=== PATIENT | male | born 1990 | race Caucasian/White ===

== ENCOUNTER 2016-12-29 11:17 | Inpatient (IN) | payer OTHER ==
[2016-12-29 12:19] LABS: % IMMATURE GRANULYOCYTES 0.3 % (0.0-1.1); ABSOLUTE IMMATURE GRANULOCYTES 0.03 10^3/uL (0.00-0.10); ADD DIFF? NO; ADD MORPH? NO; ADD SCAN? NO; ATYPICAL LYMPHOCYTE FLAG 10 (0-99); FRAGMENT RBC FLAG 0 (0-99); HEMATOCRIT 43.4 % (40.0-51.0); HEMOGLOBIN 14.9 g/dL (13.7-17.5); LEFT SHIFT FLG 0 (0-99); LIPEMIA HEMOLYSIS FLAG 90 (0-99); MEAN CELL HEMOGLOBIN 33.7 pg (27.9-34.1); MEAN CELL HEMOGLOBIN CONCENTR. 34.3 g/dL (32.4-36.7); MEAN CELL VOLUME 98.2 fL (81.5-99.8); PLATELET CLUMPS FLAG 0 (0-99); PLATELET COUNT 151 10^3/uL (150-400); RED BLOOD CELL COUNT 4.42 10^6/uL (4.40-6.38); RED CELL DISTRIBUTION WIDTH 12.9 % (11.5-15.2)
--- NOTE | 2016-12-29 12:25 | CPEKG ---
Heart Rate: 97 RR Interval: 619 P-R Interval: 140 QRSD Interval: 112 QT Interval: 376 QTC Interval: 478 P Fenwick: 14 QRS Fenwick: -30 T Wave Fenwick: 67 EKG Severity - ABNORMAL ECG - EKG Impression: SINUS RHYTHM EKG Impression: PROBABLE LEFT ATRIAL ABNORMALITY EKG Impression: INCOMPLETE RIGHT BUNDLE BRANCH BLOCK EKG Impression: LEFT VENTRICULAR HYPERTROPHY Electronically Signed By: Bolivar Negron 29-Dec-2016 13:09:16
[2016-12-29 12:27] LABS: ANION GAP 10 mEq/L (8-16); CALCIUM 8.8 mg/dL (8.5-10.4); CARBON DIOXIDE 25 mEq/l (22-31); CHLORIDE 104 mEq/L (97-110); CREATININE 0.9 mg/dL (0.7-1.3); GLOMERULAR FILTRATION RATE > 60; GLUCOSE 98 mg/dL (70-100); SODIUM 139 mEq/L (134-144)
--- NOTE | 2016-12-29 13:07 | EDPHY ---
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 He developed shortness of breath and abdominal pain last week on and ultimately had cholecystectomy on Thursday in [place]. He presents today with decrease in the right upper quadrant abdominal pain he had on Thursday but worsening shortness of breath. He feels he is unable to get a full breath and has tightness in his chest. Symptoms moderate to severe and worse with exertion. Continued since last , worse over the past 48 hours. REVIEW OF SYSTEMS: Eye: no change in vision ENT: no sore throat Cardiac: no chest pain or syncope Pulmonary: No cough Abdomen: Some abdominal distention and constipation but a single episode of vomiting today Musculoskeletal: no back pain Skin: no rash Neuro: no headache Constitutional: no fever : no urinary symptoms A comprehensive 10 point review of systems is otherwise negative aside from elements mentioned in the history of present illness. PAST MEDICAL HISTORY: Cholecystectomy as noted. Hernia surgery. Coarctation of the aorta repair as a small child. Social history: Tobacco smoker General Appearance: Alert and conversant, cooperative. Eyes: No scleral icterus. ENT, Mouth: Normal mucous membranes. Respiratory: Normal respiratory effort, crackles and decreased breath sounds right lower right lung greater than left. Cardiovascular: Regular rate and rhythm. 4/6 systolic murmur. Gastrointestinal: Abdomen is soft and some mild right upper quadrant tenderness but no rebound or guarding. Neurological: Alert and oriented x3. Normally conversant. Face symmetric, normal movement and sensation in all extremities. Skin: Skin incisions on the anterior abdominal wall cholecystectomy are clean dry and intact without evidence of erythema or surrounding warmth. Musculoskeletal: No peripheral edema and no joint swelling. No calf tenderness. Psychiatric: Not agitated. Emergency Department course/MDM: Chest x-ray personally interpreted shows bilateral lower lung infiltrates right greater than left. Pulmonary edema likely. Echocardiogram, cardiology consultation. 1345: Results discussed with the patient, echo reviewed by Dr. Barlow. Much worse tricuspid regurgitation and chest x-ray shows pulmonary edema. At this point I think the elevated D-dimer is more likely due to recent surgery, and less likely due to a pulmonary embolism. 20 mg IV Lasix, admission to hospitalist service. Seen by Dr. Barlow in the emergency department and discussed with the parents by myself. 1357: Aaron Paris. Smoking Status: Current every day smoker Constitutional: Initial Vital Signs Temperature (C) 36.6 C 12/29/16 11:19 Heart Rate 100 12/29/16 11:19 Respiratory Rate 18 12/29/16 11:19 Blood Pressure 123/72 H 12/29/16 11:19 O2 Sat (%) 90 L 12/29/16 11:19 O2 Delivery Mode Nasal Cannula O2 (L/minute) 2 Allergies/Adverse Reactions: No Known Allergies Allergy (Verified 12/29/16 13:50) Home Medications: Medication Instructions Recorded Acetaminophen/ASA/Caffeine 1 each PO Q4H PRN 12/29/16 [Excedrin Tablet (*)] Cephalexin [Keflex (*)] 500 mg PO QID 12/29/16 Hydrocodone/Acetaminophen [Enochs 1 - 2 tab PO Q4H PRN 12/29/16 5/325 (*)] Medical Decision Making - Diagnostics EKG Interpretation: 12-lead EKG interpreted by me; official reading is in trace master. My interpretation is sinus rhythm with left atrial abnormality and incomplete right bundle branch block. LVH. Imaging Results: Imaging Impressions Chest X-Ray 12/29/16 12:43 Impression: 1. Fluid overload versus mild CHF. 2. Bibasilar atelectasis versus bronchopneumonia. Differential Diagnosis: Differential diagnosis considered for shortness of breath including but not limited to pulmonary infectious process, COPD, asthma, pulmonary embolus and congestive heart failure. Consult/Admit Bed Type: [place] [id number] Critical Care Time: Critical care time spent by me, Dr. Negron, exclusively with the care of this patient was 30 minutes, exclusive of PA or GAS PIPE LAYER time and exclusive of separate procedures. The organ system at risk was cardiopulmonary and I ordered echocardiogram could chest x-ray, multiple diagnostic studies, consultation with hospitalist and shake out worker, IV Lasix and supplemental oxygen; to stabilize the patient and prevent worsening of the patient's condition. - Data Points Laboratory Results: Laboratory Results 12/29/16 12:00 12/29/16 12:00 12/29/16 12/29/16 12/29/16 12:00 12:00 12:00 WBC RBC Hgb Hct MCV MCH MCHC RDW Plt Count MPV Neut % (Auto) Lymph % (Auto) [place] % (Auto) Eos % (Auto) Baso % (Auto) Nucleat RBC Rel Count Absolute Neuts (auto) Absolute Lymphs (auto) Absolute Monos (auto) Absolute Eos (auto) Absolute Basos (auto) Absolute Nucleated RBC Immature Gran % Immature Gran # D-Dimer 2.22 ug/mLFEU H ug/mLFEU (0.00-0.50) Sodium Potassium Chloride Carbon Dioxide Anion Gap BUN Creatinine Estimated GFR Glucose Calcium Total Bilirubin 0.8 mg/dL mg/dL (0.1-1.4) Conjugated Bilirubin 0.4 mg/dL mg/dL (0.0-0.5) Unconjugated Bilirubin 0.4 mg/dL mg/dL (0.0-1.1) AST 27 IU/L IU/L (17-59) ALT 90 IU/L H IU/L (21-72) Alkaline Phosphatase 59 IU/L IU/L (38-126) NT-Pro-B Natriuret Pep 1150 pg/mL H pg/mL (0-125) Total Protein 5.8 g/dL L g/dL (6.3-8.2) Albumin 3.5 g/dL g/dL (3.5-5.0) Lipase 48 IU/L IU/L (23-300) 12/29/16 12/29/16 12:00 12:00 WBC 11.04 10^3/uL H 10^3/uL (3.80-9.50) RBC 4.42 10^6/uL 10^6/uL (4.40-6.38) Hgb 14.9 g/dL g/dL (13.7-17.5) Hct 43.4 % % (40.0-51.0) MCV 98.2 fL fL (81.5-99.8) MCH 33.7 pg pg (27.9-34.1) MCHC 34.3 g/dL g/dL (32.4-36.7) RDW 12.9 % % (11.5-15.2) Plt Count 151 10^3/uL 10^3/uL (150-400) MPV 11.0 fL fL (8.7-11.7) Neut % (Auto) 71.0 % % (39.3-74.2) Lymph % (Auto) 15.7 % % (15.0-45.0) [place] % (Auto) 11.4 % % (4.5-13.0) Eos % (Auto) 1.1 % % (0.6-7.6) Baso % (Auto) 0.5 % % (0.3-1.7) Nucleat RBC Rel Count 0.0 % % (0.0-0.2) Absolute Neuts (auto) 7.85 10^3/uL H 10^3/uL (1.70-6.50) Absolute Lymphs (auto) 1.73 10^3/uL 10^3/uL (1.00-3.00) Absolute Monos (auto) 1.26 10^3/uL H 10^3/uL (0.30-0.80) Absolute Eos (auto) 0.12 10^3/uL 10^3/uL (0.03-0.40) Absolute Basos (auto) 0.05 10^3/uL 10^3/uL (0.02-0.10) Absolute Nucleated RBC 0.00 10^3/uL 10^3/uL (0-0.01) Immature Gran % 0.3 % % (0.0-1.1) Immature Gran # 0.03 10^3/uL 10^3/uL (0.00-0.10) D-Dimer Sodium 139 mEq/L mEq/L (134-144) Potassium 4.0 mEq/L mEq/L (3.5-5.2) Chloride 104 mEq/L mEq/L (97-110) Carbon Dioxide 25 mEq/l mEq/l (22-31) Anion Gap 10 mEq/L mEq/L (8-16) BUN 13 mg/dL mg/dL (7-23) Creatinine 0.9 mg/dL mg/dL (0.7-1.3) Estimated GFR > 60 Glucose 98 mg/dL mg/dL (70-100) Calcium 8.8 mg/dL mg/dL (8.5-10.4) Total Bilirubin Conjugated Bilirubin Unconjugated Bilirubin AST ALT Alkaline Phosphatase NT-Pro-B Natriuret Pep Total Protein Albumin Lipase Medications Given: Cephalexin HCl (Keflex) 500 mg PO QID MANOHAR PRN Reason: Protocol Stop: 01/28/17 15:59 Last Admin: 12/29/16 18:16 Dose: 500 mg Discontinued Medications Furosemide (Lasix Injection) 20 mg IVP EDNOW ONE Stop: 12/29/16 14:02 Last Admin: 12/29/16 14:20 Dose: 20 mg Departure - Departure Disposition: [facility] Inpatient Acute Clinical Impression: CHF (congestive heart failure) Qualifiers: Congestive heart failure type: unspecified congestive heart failure type Congestive heart failure chronicity: acute Qualified Code(s): I50.9 - Heart failure, unspecified Tricuspid regurgitation Qualifiers: Cardiac valve disease etiology: nonrheumatic Qualified Code(s): I36.1 - Nonrheumatic tricuspid (valve) insufficiency Condition: Good
[2016-12-29 13:30] LABS: ALBUMIN 3.5 g/dL (3.5-5.0); BILIRUBIN,TOTAL 0.8 mg/dL (0.1-1.4); BILIRUBIN-CONJUGATED 0.4 mg/dL (0.0-0.5); BILIRUBIN-UNCONJUGATED 0.4 mg/dL (0.0-1.1); TOTAL PROTEIN 5.8 g/dL (6.3-8.2)
[2016-12-29] MEDS ORDERED: FUROSEMIDE 40 MG/4 ML VIAL IVP ONE (14:01)
--- NOTE | 2016-12-29 15:10 | ECHO ---
[email or web address] [address] [address] Main: [phone] Fax: [email or web address] Echocardiogram Name: ORLY BUENROSTRO MR#: [id number] Study Date: 12/29/2016 Study Time: 01:11 PM Date of : 1990 Age: 26 year(s) Height: 182.9 cm (72 in.) Weight: 72.58 kg (160 lb.) BSA: 1.94 m2 Gender: Male Examination: Echo Indication: SOB/hx of coarctation repair Image Quality: Contrast: Requested by: Bolivar Negron BP: 118 mmHg/63 mmHg Heart Rate: Rhythm: Indication: SOB/hx of coarctation repair Procedure Staff Referring Physician: ALLYSSA Hand Mounter: Stephanie Dockery Reading Physician: Paola Barlow Conclusions: Normal size left ventricle. Mild concentric LV hypertrophy. Global hypercontractility of the left ventricle (EF 77 %). All scored wall segments are normal. The right atrium is moderately dilated. Bicuspid aortic valve. There is moderate thickening of the aortic cusps. Moderately to severe aortic stenosis.The AO max PG is 62mmHG. The AO mean PG is 33mmHG. The AI P 1/2 time is 358 m/s. Moderate aortic valve regurgitation is present. Severe tricuspid regurgitation is present. Compared to echo of 01/2013, today's echo is unchanged. the aortic and tricuspid valvular disease has progressed Measurements: Chambers Valvular Assessment AV/MV Valvular Assessment TV/PV Normal Normal Normal Name Value Range Name Value Range Name Value Range Ao Selam (MM): 3.2 cm (2.2 cm-3.7 AV Vmax: 3.62 m/s (1 m/s-1.7 cm) m/s) IVSd (2D): 1.4 cm (0.6 cm-1.1 AV maxP mmHg ( - ) cm) AV meanP mmHg ( - ) LVDd (2D): 4.9 cm (4.2 cm-5.9 LVOT Vmax: 1.07 m/s (0.7 m/s-1.1 cm) m/s) LVDs (2D): 2.8 cm (2.1 cm-4 OSCAR (Vmax): 1.2 cm2 ( - ) cm) OSCAR (VTI): 1.4 cm ( - ) LVPWd (2D): 1.0 cm (0.6 cm-1 AR (PHT): 358 ms ( - ) cm) MV E Vmax: 1.45 cm/s ( - ) LVOTd 2.3 cm 2.3 cm mm MV A Vmax: 1.19 cm/s ( - ) LVEF (MOD4): 77 % (>=55 %) MV E/A: 1.22 ( - ) Patient: ORLY BUENROSTRO Study Date: 12/29/2016 Page 1 of 2 01:11 PM Continued Measurements: Chambers Valvular Assessment AV/MV Name Value Name Value LA Area: 21.5 cm2 MV E/E' Septal: 22.60 LA Volume: 59 ml MV E/E' Lateral: 14.60 LA Volume Index: 30.4 ml/m2 AR Vmax: 4.43 cm/s Findings: Left Ventricle: Normal size left ventricle. Mild concentric LV hypertrophy. Global hypercontractility of the left ventricle (EF 77 %). All scored wall segments are normal. Right Ventricle: Normal size right ventricle. Normal RV function. Left Atrium: The left atrium is normal in size. Right Atrium: The right atrium is moderately dilated. Mitral Valve: The mitral valve is normal in appearance. Trivial to mild mitral regurgitation. Aortic Valve: Bicuspid aortic valve. There is moderate thickening of the aortic cusps. Moderately to severe aortic stenosis.The AO max PG is 62mmHG. The AO mean PG is 33mmHG. The AI P 1/2 time is 358 m/s. Moderate aortic valve regurgitation is present. Tricuspid Valve: Severe tricuspid regurgitation is present. Pulmonic Valve: The pulmonic valve is normal in appearance. Great Vessels: No dilatation of the aorta. Pericardium: Trivial anterior pericardial effusion. (No Signature Object) Wall Motion Scores Patient: ORLY BUENROSTRO Study Date: 12/29/2016 Page 2 of 2 01:11 PM [id number]
[2016-12-29] MEDS ORDERED: ACETAMINOPHEN/ASA/CAFFEINE 1 EACH TAB PO PRN (15:51)
[2016-12-29] MEDS ORDERED: HYDROCODONE/APAP 5/325 TAB PO PRN (15:51)
[2016-12-29] MEDS ORDERED: ONDANSETRON 4 MG/2 ML VIAL IVP PRN (15:52)
[2016-12-29] MEDS ORDERED: ACETAMINOPHEN 325 MG TAB PO PRN (15:52)
[2016-12-29] MEDS ORDERED: ONDANSETRON DISINTEGRATING 4 MG TAB PO PRN (15:52)
--- NOTE | 2016-12-29 16:30 | GHP ---
[f rep st] HISTORY AND PHYSICAL DATE OF ADMISSION: 12/29/2016 CHIEF COMPLAINT: Shortness of breath. HISTORY OF PRESENT ILLNESS: A 26-year-old male with history of coarctation of the aorta, status post repair as a child; presenting with progressive shortness of breath. 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 He ultimat michael had a cholecystectomy while there in [place]. He comes to the ED today with increased abdomin al pain and progressive shortness of breath. It feels like he cannot get a full breath in and feels tight. These are worse with exertion. Denies chest pain or lower extremity edema. No PND. No pill ow orthopnea. REVIEW OF SYSTEMS: I completed a 10-point review of systems, negative except as noted in HPI. PAST MEDICAL HISTORY: Coarctation of the aorta, status post repair. PAST SURGICAL HISTORY: 1. Cholecystectomy. 2. Coarctation of aorta repair. 3. Dental surgeries. 4. Hernia surgery. SOCIAL HISTORY: Denies tobacco, alcohol or illicits. 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 Lives in [place]. FAMILY HISTORY: Coronary artery disease, diabetes, breast cancer, hypertension. ALLERGIES: None. MEDICATIONS: None. PHYSICAL EXAM: VITAL SIGNS: Temperature 36.6, blood pressure 143/74, heart rate 100, 94% on 2 L. G ENERAL: Well-appearing male, lying in bed, no acute distress. HEENT: PERRLA. EOMI. Oropharynx cl ear. CV: Regular rate and rhythm. No murmurs, gallops or rubs. No peripheral edema. LUNGS: Bailey r to auscultation, decreased at bases. ABDOMEN: Soft, nontender, nondistended. Positive bowel soun ds. Laparoscopic incision sites are clean, dry, healing well. : No Dukes. MUSCULOSKELETAL: 5/5 upper and lower extremity strength. NEUROLOGIC: 2 through 12 intact. PSYCHIATRIC: Alert and oriented x 3. LABS: WBC 11, hemoglobin 14, hematocrit 43, platelets 151. D-dimer is 2.2. Sodium 139, potassium 4 .0, chloride 104, carbon dioxide 25, creatinine 0.9, glucose 98, calcium 8.8. AST 27, ALT 90. Total protein 5. Albumin is 3.5. Lipase 48. Chest x-ray, personally reviewed by me: Pulmonary edema, blunted costophrenic angles. EKG, personally reviewed by me: Incomplete right bundle branch block. No old to compare. Echocardiogram: Bicuspid valve with moderate to severe AR and . TR which is new since 2013. EF i s normal, diastolic heart failure. ASSESSMENT AND PLAN: 1. Acute hypoxic respiratory failure secondary to right heart failure with new tricuspid regurgitati on. Received IV Lasix in the emergency room. Dr. Barlow with cardiology to evaluate and plan for JENA tomorrow. 2. Abdominal pain: This is improved. Recent gallbladder surgery. Incisions are healing well. 3. Elevated D-dimer: Likely secondary to recent surgery. Likely less to recent surgery, less than pulmonary embolism. Right ventricle has normal function and size. 4. Diet: N.p.o. after midnight. 5. Deep venous thrombosis prophylaxis: Low risk. DISPOSITION: Patient warrants observation admission given acute hypoxia requiring JENA. /[id number]/MODL
[2016-12-29] MEDS: CEPHALEXIN 500 MG CAP PO SCH ×2 (18:16→21:43)
--- NOTE | 2016-12-29 19:55 | GCON ---
[f rep st] CONSULTATION DATE OF CONSULTATION: 12/29/2016 CHIEF COMPLAINT: Shortness of breath. HISTORY OF PRESENT ILLNESS: We are asked by Dr. Negron to visit with the patient. The patient is a 26 -year-old male with a history of congenital heart disease. He has a bicuspid aortic valve, and had s urgical repair of aortic coarctation as an . He thinks he may have had some other heart surger y at that time, but is not aware of the details. His last cardiology followup was in 2012 in [place] with Dr. Laughlin. At that time, he had an echocardiogram with preserved biventricular systolic function, moderate aortic stenosis and [id number]-ghfcvfik aortic regurgitation. Mild tricuspid regurgi tation. He has overall done well in the intervening 4 years. He has not had any cardiac limitations up until about a week ago. He started to develop a dry cough, dyspnea and pressure over his lower chest and abdomen. 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 He was take n to a medical center in [facility] over this past weekend, diagnosed with cholecystitis, an d underwent cholecystectomy. This was 2 days ago. He was discharged yesterday and flew home. He reports that he does have some incisional pain, but he also continues to have the lower chest pres sure and dyspnea. He has not had syncope. He denies lower extremity edema. He is not sure if he tan s gained weight. He does note intermittent palpitations. In the emergency department, he was found to be hypoxic to the mid 80s and required supplemental oxyg en. His chest x-ray shows pulmonary edema. A bedside echocardiogram, reviewed by me, shows normal b iventricular size and systolic function. Bicuspid aortic valve with [id number]-[id number] aortic stenos is and moderate to severe aortic regurgitation. He has severe tricuspid regurgitation and mild-to-mo derate right atrial dilation. There is an echodense lesion in the right atrium of unclear significan ce. REVIEW OF SYSTEMS: The patient denies fever, chills, or rash. No history of bleeding problems. No nausea, vomiting or diarrhea. No urinary problems. No history of stroke or TIA. He has not had any recent dental work. PAST MEDICAL HISTORY: 1. Congenital heart disease with surgical repair of coarctation as an infant and bicuspid aortic doris ve. 2. History of hernia repair. 3. Status post appendectomy. OUTPATIENT MEDICATIONS: None. 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 He does smoke cigarettes intermittently. No a lcohol. In the past, he has used IV drugs, the last about 4 years ago. He denies marijuana or cocai ne. FAMILY HISTORY: Negative for premature coronary disease or congenital heart disease. PHYSICAL EXAM: VITAL SIGNS: Blood pressure 143/74, heart rate 103, oxygen saturation 94% on 2 L karena al cannula. He is afebrile. GENERAL: Well-appearing and well-developed young male. He appears anx ious. HEENT: Sclerae are clear and free of jaundice. Mucous members are moist. Normocephalic, atr aumatic. CARDIOVASCULAR: JVP is less than 10. Carotids equal and 2+ bilaterally without bruit. Re gular rate and rhythm with laterally displaced PMI. Harsh holosystolic ejection murmur heard through out the precordium. Harsh holosystolic murmur at the left lower sternal border and at the apex. S3 is present. LUNGS: Bilateral bibasilar rales without wheezes or rhonchi. Breathing appears nonlabo red. ABDOMEN: Laparoscopic incisions appear to be healing normally. Positive bowel sounds. Slightl y distended. Minimally tender diffusely. EXTREMITIES: Warm and well perfused without cyanosis, clu bbing, or edema. Intact distal pulses. LABORATORY DATA: White count 11, hematocrit 43.4, platelets 151. D-dimer is 2.22. Sodium 139, pota ssium 4, chloride 104, bicarb 13, creatinine 0.9, AST 27, ALT 90, total protein 5.8, albumin 4.8, lip ase 48. Chest x-ray reviewed by me: Bilateral pulmonary edema. Bibasilar atelectasis, cardiomegaly. EKG reviewed by me: Sinus rhythm, left anterior fascicular block, delayed R-wave progression, nonspe cific intraventricular conduction delay. Echocardiogram reviewed by me and detailed above. ASSESSMENT/PLAN: 26-year-old male with congenital heart disease, presents with symptoms of heart latonya lure that appear related to progressive valvular disease. It is interesting that his symptoms starte d just a week ago, and the severity of his tricuspid regurgitation raises the concern about a sudden issue of the valve, such as chordal rupture. He also has an abnormal finding in his right atrium, wh ich does not appear like a classic vegetation. He is not hemodynamically unstable, but does require admission for diuresis and further evaluation. 1. Valvular heart disease: Bicuspid aortic valve with vugxcmcn-qu-nsnckb aortic stenosis and modera si-ol-prjgem aortic regurgitation as well as severe tricuspid regurgitation. He has received intrave nous Lasix in the emergency room. He may require additional diuresis to improve his pulmonary edema and dyspnea. Will perform JENA once he is not hypoxic, ideally tomorrow. He may require surgical int ervention for his valvular disease. Will attempt to obtain details of his pediatric heart surgery fr om his parents. 2. Recent cholecystectomy: It is unclear whether he truly had cholecystitis versus symptoms of righ t heart failure that were interpreted as cholecystitis. His abdomen appears stable. 3. Tobacco use: He was encouraged to quit smoking completely. Thank you for allowing us to participate in the patient's care. We will follow with you. /[id number]/MODL
[2016-12-30] MEDS ORDERED: NS 1,000 ML IV ONE (06:00)
[2016-12-30] MEDS: CEPHALEXIN 500 MG CAP PO SCH ×2 (06:06→15:42)
--- NOTE | 2016-12-30 09:24 | PDCARPN ---
Cardiology Progress Note Assessment/Plan: Assessment/plan: 26-year-old male with congenital heart disease. He has a bicuspid aortic valve and had surgical repair of aortic coarctation at 26 hours of life. When he was about 2 years old he had balloon valvuloplasty of his aortic valve and his mitral valve, according to his mother. Had been doing well as an outpatient. He is now admitted through the emergency department with dyspnea, hypoxia, pulmonary edema. He recently had gallbladder surgery as well. Echocardiogram reveals interventional tricuspid regurgitation, moderate to severe aortic stenosis and moderate to severe aortic regurgitation. Preserved biventricular systolic function. 1. Congenital heart disease with valvular disease as detailed above: This is most likely explanation for his clinical presentation. JENA today for further evaluation. Further diuresis with Lasix after JENA. I do think he should have a consultation with the [facility] at the [facility] , Dr. Prudencio Teran or Dr. Raissa Noble. He will likely need surgical intervention in the near future for his valvular disease. I do not think this needs to be performed this admission. 2. Hypoxia: Chest x-ray consistent with pulmonary edema. Elevated BNP. However , did have an elevated D-dimer. This may be related to his recent surgery. PE does seem less likely. Will discuss with Hospital Medicine whether he should have a chest CT for further evaluation. Procalcitonin is pending. 3. Recent cholecystectomy: He continues to recover. This appears stable. 4. Tobacco abuse: He will need to remain abstinent from cigarettes. 12/30/16 09:26 Subjective: He feels no different after Lasix in the emergency department. Still dyspneic with some chest pressure. Reviewed/Discussed With: family Objective: Vital Signs (8 Hrs) Temp Pulse Resp BP Pulse Ox 12/30/16 07:20 36.7 C 101 H 16 97/72 L 91 L 12/30/16 04:00 36.8 C 92 18 93/69 L 93 Intake/Output (24 Hrs) 12/29/16 12/30/16 12/31/16 05:59 05:59 05:59 Intake Total 1000 Balance 1000 Intake: Oral (ml) 1000 Other: Weight 72.575 kg Number of Voids Toilet 2 No acute distress. JVP 14 cm of water. Regular rate and rhythm with a harsh 2/6 holosystolic murmur the left lower sternal border and at the apex. Harsh mid peaking systolic ejection murmur heard loudest at the base. S3 is no longer present. No S4. Lungs breathing is nonlabored. He has rales at the mid to apex but his previous basilar rales have cleared. Abdomen is minimally tender but soft extremities warm well perfused without cyanosis clubbing or edema Result Diagrams: 12/29/16 12:00 12/29/16 12:00 Telemetry: NSR ICD10 Worksheet Patient Problems: Problems Problem Status Onset CHF (congestive heart failure) Acute Tricuspid regurgitation Acute
--- NOTE | 2016-12-30 09:30 | PDHPUP ---
History & Physical Update H&P update statement: This history and physical update is based on an assessment of the patient which was completed after admission or registration (within 24 hours), but prior to the surgery/procedure. H&P update: H&P reviewed & patient examined, no change in patient's condition since H&P completed
--- NOTE | 2016-12-30 09:30 | PDPROPOC ---
Sedation Plan of Care Sedation Plan of Care: vital signs stable, mental status noted ASA Classification: ASA 2 Planned drugs: fentanyl, midazolam Mallampati Score: Class 2 Mallampati Reference Image: Patient passed 3-3-2 rule?: Yes
[2016-12-30 09:41] LABS: % IMMATURE GRANULYOCYTES 0.2 % (0.0-1.1); ABSOLUTE IMMATURE GRANULOCYTES 0.02 10^3/uL (0.00-0.10); ADD DIFF? NO; ADD MORPH? NO; ADD SCAN? NO; ATYPICAL LYMPHOCYTE FLAG 20 (0-99); FRAGMENT RBC FLAG 0 (0-99); HEMATOCRIT 43.6 % (40.0-51.0); LEFT SHIFT FLG 0 (0-99); LIPEMIA HEMOLYSIS FLAG 90 (0-99); MEAN CELL HEMOGLOBIN 33.4 pg (27.9-34.1); MEAN CELL HEMOGLOBIN CONCENTR. 34.4 g/dL (32.4-36.7); MEAN CELL VOLUME 97.1 fL (81.5-99.8); MEAN PLATELET VOLUME 10.7 fL (8.7-11.7); PLATELET CLUMPS FLAG 0 (0-99); PLATELET COUNT 161 10^3/uL (150-400); RED BLOOD CELL COUNT 4.49 10^6/uL (4.40-6.38); RED CELL DISTRIBUTION WIDTH 12.7 % (11.5-15.2)
[2016-12-30 10:28] LABS: ALANINE AMINOTRANSFERASE 82 IU/L (21-72); ALBUMIN 3.2 g/dL (3.5-5.0); ALKALINE PHOSPHATASE 59 IU/L (38-126); ANION GAP 8 mEq/L (8-16); ASPARTATE AMINOTRANSFERASE 32 IU/L (17-59); CALCIUM 9.1 mg/dL (8.5-10.4); CARBON DIOXIDE 24 mEq/l (22-31); CHLORIDE 105 mEq/L (97-110); CREATININE 0.9 mg/dL (0.7-1.3); GLOMERULAR FILTRATION RATE > 60; GLUCOSE 88 mg/dL (70-100); POTASSIUM 4.2 mEq/L (3.5-5.2); SODIUM 137 mEq/L (134-144); TOTAL PROTEIN 5.5 g/dL (6.3-8.2)
[2016-12-30 10:34] LABS: PROCALCITONIN 0.09 ng/mL (0.02-0.10)
[2016-12-30] MEDS ORDERED: fentaNYL 100 MCG/2 ML INJ ONE (11:00)
[2016-12-30] MEDS ORDERED: MIDAZOLAM 2 MG/2 ML VIAL ONE (11:00)
--- NOTE | 2016-12-30 14:44 | ASMTCMCOM ---
CM Note CM Note Notes: 12/30/2016 Case Management Note: Reviewed chart, unable to meet w/pt due to schedule procedures. 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 Received phone call from Nemo Calvillo ([phone]) and Erik Davalos ([phone]) [facility]. Faxed requested medical records via [employer] to [phone]. Left for Erik Davalos. Case Management d/c poc: anticipating independent d/c d/t activity levels prior to admission, pt age and lack of therapy evals. Case Management to follow. Date Signed: 12/30/2016 02:44 PM Electronically Signed By:Marie Bates RN
[2016-12-30] MEDS: FUROSEMIDE 40 MG TAB PO SCH ×2 (15:49→19:44)
--- NOTE | 2016-12-30 15:56 | HOSPPROG ---
Hospitalist Progress Note Assessment/Plan: assessment: 26-year-old male presenting with acute hypoxia and shortness of breath in the setting of acute diastolic congestive heart failure secondary to worsening valvular abnormalities Plan: 1. Acute diastolic congestive heart failure exacerbation. New problem this provider, further workup indicated. Evidenced by pulmonary edema on chest x-ray , personally interpreted, overt hypoxia on presentation with SpO2 of 80%, echocardiogram demonstrating normal ejection fraction, severe tricuspid regurgitation, moderate to severe aortic stenosis, concentric left ventricular hypertrophy -underwent transesophageal echocardiogram today to further evaluate valvular abnormalities -discussed with Dr. Paola Barlow, she has reported to me that the patient has what appears to be hemorrhagic cyst at the tricuspid valve and not a bacterial appearing vegetation -that being said, we will evaluate the patient's inflammatory markers as well as blood cultures to ensure that we are not missing endocarditis -he has received 1 dose of IV Lasix yesterday, and has responded well, experiencing reduced symptoms with ambulation -will initiate Lasix 40 mg twice daily now, gauge effect, plan to discharge home on oral Lasix -suspect the cause of his CHF exacerbation is secondary to worsening valvular abnormalities as well as recent fluids received during hospitalization and which he had a cholecystectomy 2. Congenital heart disease. 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 Barlow has recommended that the patient follow up with Adult Congenital Heart Disease specialist in [place] the patient will receive these referrals at discharge, there is no indication for inpatient transfer at this time Diet. Cardiac Prophylaxis. Low risk patient, SCDs Code. Full Disposition. Anticipated discharge is 12/31/2016, pending further workup as outlined above, upgrade to INPT admission status for acute dCHF exacerbation, requiring JENA for w/o, severe valvular abnormalities Subjective: mild SOB w/ ambulation Objective: Vital Signs Temp Pulse Resp BP Pulse Ox 36.8 C 99 28 H 128/74 H 96 12/30/16 15:39 12/30/16 15:39 12/30/16 15:39 12/30/16 15:39 12/30/16 15:39 Laboratory Results 12/30/16 09:27 12/30/16 09:27 12/29/16 12/30/16 12/31/16 05:59 05:59 05:59 Intake Total 1000 Balance 1000 - Physical Exam Constitutional: no apparent distress, appears nourished, not in pain Cardiovascular: systolic murmur (III/ at sternum and apex), No irregularly irregular, No tachycardia, No edema Respiratory: reduced air movement (bialt bases), inspiratory crackles, No expiratory wheeze, No bronchial breath sounds, No respiratory distress Gastrointestinal: normoactive bowel sounds, soft, non-tender abdomen, no palpable masses, No distension Skin: other (no erythema/induration/ecchymoses/tenderness around surg sites, well healing) Neurologic: AAOx3, sensation intact bilaterally, No facial droop Psychiatric: interacting appropriately, not anxious, not encephalopathic, thought process linear ICD10 Worksheet Patient Problems: Problems Problem Status Onset CHF (congestive heart failure) Acute Tricuspid regurgitation Acute
--- NOTE | 2016-12-30 17:14 | ECHO ---
[email or web address] [address] [address] Main: [phone] Fax: Transesophageal Echocardiography Name: ORLY BUENROSTRO MR#: [id number] Study Date: 12/30/2016 Study Time: 12:19 PM Date of : 1990 Age: 26 year(s) Height: ( ) Weight: ( ) BSA: Gender: Male Examination: JENA Indication: evaluate the TV Image Quality: Contrast: Requested by: Paola Barlow Heart Rate: Rhythm: Normal sinus rhythm BP: / Procedure Staff Vacation Guide: Arielle Wilson Reading Physician: Paola Barlow JENA Exam Details Conclusions: Normal size left ventricle. Moderately dilated right ventricle. Mildly reduced RV function. The right atrium is mildly to moderately dilated. An agitated saline study was performed and was negative for intracardiac shunting. The mitral valve is normal in appearance. Trivial mitral valve regurgitation. Mean gradient across the valve 6mmHg. Bicuspid aortic valve. Moderate to severe aortic regurgitation. Severe tricuspid regurgitation is present. The pulmonary artery pressure is severely increased. Estimated PA systolic pressure is 96 mmHg. The tricuspid valve has a rounded, echolucent lesion that is likely a blood cyst attached to the posterior leaflet. Small pericardial effusion. Compared with office echo in 2012 AR is worse; TR is now torrential. Severe PHTN now present lesion seen associated with the TV Measurements: Chambers Valvular Assessment AV/MV Valvular Assessment TV/PV Normal Normal Normal Name Value Range Name Value Range Name Value Range MV meanP ( - ) TV Vmax: 1.84 (0.3 m/s-0.7 m/s) TV Vmean: 1.25 ( - ) TV PGmax: 14 ( - ) Patient: ORLY BUENROSTRO Study Date: 12/30/2016 Page 1 of 2 12:19 PM TV PGmean: 7 ( - ) TV VTI: 27.70 ( - ) TR Vmax: 4.90 mm/s ( - ) TR PGmax: 96 mmHg ( - ) syst. PAP: 101 mmHg ( - ) Additional Measurements: Valvular Assessment TV/PV Name Value CVP (est.): 5 Findings: Left Ventricle: Normal size left ventricle. Normal global systolic LV function. Normal global systolic LV function. Right Ventricle: Moderately dilated right ventricle. Mildly reduced RV function. Left Atrium: An agitated saline study was performed and was negative for intracardiac shunting. Right Atrium: The right atrium is mildly to moderately dilated. An agitated saline study was performed and was negative for intracardiac shunting. Mitral Valve: The mitral valve is normal in appearance. Trivial mitral valve regurgitation. Mean gradient across the valve 6mmHg. Aortic Valve: Bicuspid aortic valve. Moderate to severe aortic regurgitation. Tricuspid Valve: Severe tricuspid regurgitation is present. The pulmonary artery pressure is severely increased. Estimated PA systolic pressure is 96 mmHg. The tricuspid valve has a rounded, echolucent lesion that is likely a blood cyst attached to the posterior leaflet. Pulmonic Valve: Trivial pulmonic valve regurgitation. Pericardium: Small pericardial effusion. l1n (No Signature Object) Patient: ORLY BUENROSTRO Study Date: 12/30/2016 Page 2 of 2 12:19 PM [id number]
[2016-12-30 18:18] LABS: SEDIMENTATION RATE 5 MM/HR (0-15)
[2016-12-31 05:26] LABS: % IMMATURE GRANULYOCYTES 0.4 % (0.0-1.1); ABSOLUTE IMMATURE GRANULOCYTES 0.03 10^3/uL (0.00-0.10); ADD DIFF? NO; ADD MORPH? NO; ADD SCAN? NO; ATYPICAL LYMPHOCYTE FLAG 20 (0-99); FRAGMENT RBC FLAG 0 (0-99); HEMATOCRIT 41.5 % (40.0-51.0); HEMOGLOBIN 14.1 g/dL (13.7-17.5); LEFT SHIFT FLG 0 (0-99); LIPEMIA HEMOLYSIS FLAG 90 (0-99); MEAN CELL HEMOGLOBIN 33.3 pg (27.9-34.1); MEAN CELL VOLUME 97.9 fL (81.5-99.8); MEAN PLATELET VOLUME 11.6 fL (8.7-11.7); PLATELET CLUMPS FLAG 10 (0-99); PLATELET COUNT 170 10^3/uL (150-400); RED BLOOD CELL COUNT 4.24 10^6/uL (4.40-6.38); RED CELL DISTRIBUTION WIDTH 12.7 % (11.5-15.2)
[2016-12-31 05:44] LABS: ALANINE AMINOTRANSFERASE 81 IU/L (21-72); ALBUMIN 3.1 g/dL (3.5-5.0); ALKALINE PHOSPHATASE 62 IU/L (38-126); ANION GAP 9 mEq/L (8-16); ASPARTATE AMINOTRANSFERASE 37 IU/L (17-59); BILIRUBIN,TOTAL 0.5 mg/dL (0.1-1.4); CARBON DIOXIDE 28 mEq/l (22-31); CHLORIDE 102 mEq/L (97-110); GLOMERULAR FILTRATION RATE > 60; GLUCOSE 89 mg/dL (70-100); POTASSIUM 3.8 mEq/L (3.5-5.2); SODIUM 139 mEq/L (134-144); TOTAL PROTEIN 5.5 g/dL (6.3-8.2)
[2016-12-31] MEDS: FUROSEMIDE 40 MG TAB PO SCH (09:01)
--- NOTE | 2016-12-31 10:52 | PDCARPN ---
Cardiology Progress Note Assessment/Plan: Assessment/plan: 26-year-old male with congenital heart disease. He has a bicuspid aortic valve and had surgical repair of aortic coarctation at 26 hours of life. When he was about 3 years old he had balloon valvuloplasty of his aortic valve and his mitral valve, according to his mother. Had been doing well as an outpatient. He is now admitted through the emergency department with dyspnea, hypoxia, pulmonary edema. He recently had gallbladder surgery as well. Echocardiogram reveals torrential tricuspid regurgitation, moderate to severe aortic stenosis and moderate to severe aortic regurgitation. Severe PH and preserved biventricular systolic function. 1. Congenital heart disease with valvular disease as detailed above: This is most likely explanation for his clinical presentation. JENA on 12/30 demonstrated valvular disease as detailed above. he appears to have a blood cyst on his TV. Appears clinically improved, will change to daily lasix with KCl supplementation. I do think he should have a consultation with the Adult Congenital Heart Disease Clinic at the [facility], Dr. Prudencio Teran or Dr. Raissa Noble. I have arranged follow up with that clinic. He will likely need surgical intervention in the near future for his valvular disease. I do not think this needs to be performed this admission. I do not think he has endocarditis as his blood cultures have not grown anything today, ESR normal. CRP is slightly elevated. 2. Hypoxia: He is now satting in the low 90s on room air. Chest x-ray consistent with pulmonary edema. Elevated BNP. However, did have an elevated D- dimer. This may be related to his recent surgery. PE does seem less likely, however he continues to have pleuritic chest pain so will have a CT pulmonary angiogram today for definitive evaluation. 3. Recent cholecystectomy: He continues to recover. This appears stable. 4. Tobacco abuse: He will need to remain abstinent from cigarettes. 12/31/16 10:49 Subjective: Abdirashid feels better with significant diuresis overnight. He still has some pleuritic chest pain, chest heaviness and exertional dyspnea but is overall much improved. He is eating well. Reviewed/Discussed With: family, hospitalist Objective: Vital Signs (8 Hrs) Temp Pulse Resp BP Pulse Ox 12/31/16 07:14 36.7 C 99 16 122/73 H 95 12/31/16 04:00 36.7 C 101 H 20 113/60 89 L Intake/Output (24 Hrs) 12/30/16 12/31/16 01/01/17 05:59 05:59 05:59 Intake Total 500 Output Total 2465 Intake: Oral (ml) 500 Output: Urine (ml) 2465 Toilet 2465 Other: Weight 77 kg Intake Quantity Yes Sufficient JVP 12 cm of water. Regular rate and rhythm with hyperdynamic precordium. Harsh holosystolic murmur at the left lower sternal border and the apex. 2/6 mid-peaking systolic ejection murmur at the base. S3 is present. Lungs clear auscultation by a that was rhonchi or rales extremities are warm well perfused without cyanosis clubbing or edema Result Diagrams: 12/31/16 04:13 12/31/16 04:13 ICD10 Worksheet Patient Problems: Problems Problem Status Onset CHF (congestive heart failure) Acute Tricuspid regurgitation Acute
[2016-12-31] MEDS ORDERED: IOPAMIDOL (ISOVUE 370) 100 ML BTL IV ONE (11:29)
[2016-12-31 12:14] VITALS: BP 125/60; PULSE 91; RESP 17; TEMP 98.3; O2SAT 91
--- NOTE | 2016-12-31 16:15 | GDS ---
[f rep st] DISCHARGE SUMMARY DISCHARGE DIAGNOSES: 1. Acute hypoxemic respiratory failure secondary to acute heart failure in the setting of congenital heart disease. Discharged on room air. 2. Valvular heart disease including torrential tricuspid regurgitation, moderate to severe aortic stenosis and moderate to severe aortic regurgitation. 3. Severe pulmonary hypertension. 4. History of coarctation of the aorta repaired as an with assumed associated abnormalities on CT 5. Recent cholecystectomy. 6. Tobacco abuse. CONSULTANTS: Dr. Paola Barlow, cardiology. IMAGING STUDIES/PROCEDURES: 1. Transthoracic echocardiogram performed December 29, 2016, shows a normal size left ventricle with mild concentric left ventricular hypertrophy, ejection fraction of 77% with normal wall segments. There was also normal RV function. The left atrium is normal, but the right atrium is moderately dilated. There is moderate thickening of aortic cusps with moderate to severe aortic stenosis. Moderate aortic regurgitation and severe tricuspid regurgitation. 2. Transesophageal echocardiogram December 30, 2016, showed a moderately dilated right ventricle with mildly reduced RV function and mild to moderately dilated right atrium. Again, moderate to severe aortic regurgitation and severe tricuspid regurgitation with severely increased pulmonary artery pressure of 96, and an echo lucent lesion seen on the tricuspid valve, which is likely a blood cyst attached to the posterior leaflet. Compared to an office echo in 2012, his AR is worse, TR is now torrential and severe pulmonary hypertension is now present in addition to the lesion seen on the tricuspid valve. 3. CT pulmonary angiogram on December 31 was negative for pulmonary embolism. Congenital heart disease is noted with a bicuspid aortic valve with surgical repair of an aortic coarctation. an unusual configuration of the great vessels off the aortic arch is seen with a dominant right innominate artery and lack of visualization of the left-sided great vessels, which are likely to be crossed filled more cephalad above the plane of imaging as the patient has no neurologic symptoms. In addition, cardiomegaly with pronounced right atrial and right ventricular enlargement and secondary features suggestive of elevated right-sided heart pressures. Also noted are bilateral lower lobe infiltrates with accompanying pleural effusions. This is thought most likely secondary to compressive atelectasis as he has no clinical symptoms consistent with pneumonia. HISTORY: For details, please see the history and physical dated December 29, 2016. In brief, the patient is a 26-year-old male with a history of congenital heart disease including coarctation of the aorta that was repaired as an infant. He presented to the hospital after traveling from [place] where he underwent a cholecystectomy. Upon arrival, he complained of shortness of breath and his workup was consistent with heart failure including a pulmonary edema on his chest x-ray and an elevated BNP. He was admitted to the hospital for further management. HOSPITAL COURSE: Patient was admitted to the cardiac telemetry unit. He was initiated on IV Lasix therapy and this was transitioned to oral Lasix. He diuresed quite effectively with improvement in his symptoms. He was able to wean off oxygen. Given his elevated D-dimer with postop state and recent travel , CT pulmonary angiogram was performed which was negative for pulmonary embolism. Multiple abnormalities were seen on CT consistent with his congenital heart disease including an unusual configuration of the great vessels off the aortic arch. This will likely need further imaging as deemed appropriate by the adult congenital heart disease clinic at the [facility]. Cardiology consult was obtained. The patient underwent echocardiography with results described above. Incidentally, a lesion was seen on the tricuspid valve which ultimately was deemed most likely to be a blood cyst. However, blood cultures were obtained as an additional assurance this did not represent a vegetation and/or bacterial endocarditis. He has a normal white blood cell count. He is afebrile. Our cardiology fellow here, Dr. Barlow, discussed the case with Dr. Noble at the [facility] adult [facility] clinic. The plan is for them to call the patient for an appointment in the near future. He will bring a CD of his transesophageal echo as well as his chest CT to his appointment with Dr. Noble. He will be discharged on oral Lasix along with potassium supplementation. DISPOSITION: The patient is discharged home in stable condition. FOLLOWUP: 1. Dr. Noble at the adult congenital heart disease clinic at the [facility]. They will call the patient for an appointment. He was also provided with their phone number. 2. Primary care. DISCHARGE MEDICATIONS: Please see [employer] for complete updated outpatient medication list. New medications on discharge include Lasix 40 mg p.o. daily # 30, no refills; potassium 20 mEq p.o. daily #30, no refills. /[id number]/MODL MTDD
--- NOTE | 2016-12-31 16:17 | ASDISCHSUM ---
Discharge Information Plan Status:Home with No Needs Medically Cleared to Leave:12/31/2016 Discharge Date:12/31/2016 03:58 PM CM D/C Disposition:Home, Routine, Self-Care ADT D/C Disposition:Home, Routine, Self-Care Projected Discharge Date:12/31/2016 12:00 AM Transportation at D/C:Family Discharge Delay Reason: Follow-Up Date:12/31/2016 12:00 AM Discharge Slot: Final Diagnosis: Placement Information Patient Contact Information Contact Name:BENY Relationship:Mother Address:[address] [place] [address] City:[place] Alternate Phone: State/Zip Code:[place] [address] Email: Financial Information Financial Class:Worker's Compensation Primary Plan Desc:[facility] Primary Plan Number:[id number] Secondary Plan Desc: Secondary Plan Number: Assessment Information [facility] CM Progress Note CM Note CM Note Notes: 12/30/2016 Case Management Note: Reviewed chart, unable to meet w/pt due to schedule procedures. 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 Received phone call from Nemo Calvillo ([phone]) and Erik Davalos ([phone]) [facility] records. Faxed requested medical records via [employer] to [phone]. Left VM for Erik Davalos. Case Management d/c poc: anticipating independent d/c d/t activity levels prior to admission, pt age and lack of therapy evals. Case Management to follow. Date Signed: 12/30/2016 02:44 PM Electronically Signed By:Marie Bates RN Intervention Information Intervention Type:*Incorrect Registration Date of Service:12/29/2016 06:00 PM Patient Type:Observation Staff Member:JOLENE Dill Dina Hours: Discipline: Severity: Comment:
== END 2016-12-31 15:58 | disposition home or self-care (01) | DRG 189 ==
LOC: INTOOBSV 14:01 → F2W 15:35 → OBSVTOIN 12-30 16:51
PROVIDERS: ADMIT Family Medicine; ATTEND Internal Medicine
PROC: B241ZZ4 Ultrasonography of Multiple Coronary Arteries, Transesophageal (ICD-10-PCS; principal; 2016-12-30)
DX: J96.01 Acute respiratory failure with hypoxia (principal); I50.31 Acute diastolic (congestive) heart failure; I08.2 Rheumatic disorders of both aortic and tricuspid valves; I27.2 Other secondary pulmonary hypertension; I70.0 Atherosclerosis of aorta; Z72.0 Tobacco use
CPT/HCPCS: 96374; J1940; J2250; J3010; Q9967